=== PATIENT | male | born 1940 | race Caucasian/White ===

== ENCOUNTER 2025-11-01 14:26 | Inpatient (IN) | payer MEDICARE, SELFPAY ==
[2025-11-01] VITALS (11 sets, daily range): BP systolic 82–119; BP diastolic 48–59; PULSE 56–92; RESP 16–19; TEMP 36.1–37.4; O2SAT 89–97
--- NOTE | ~2025-11-01 | CT_ITS ---
CLINICAL HISTORY: chest trauma (elevated creatinine) CT chest without contrast Comparison: None provided Findings: Calcified coronary atherosclerotic disease. The visualized thyroid and mediastinum are unremarkable. These interstitial reticular opacities with peripheral honeycombing. This is reticular opacities with peripheral honeycombing. Right upper lobe mass 4.8 cm. Left upper lobe 2.2 cm pulmonary nodule. Mild calcified atherosclerotic disease of the abdominal aorta. No acute fractures. Moderate osteopenia. IMPRESSION: 1. 4.8 cm right upper lobe mass. 2.2 cm left upper lobe pulmonary nodule. Short-term follow-up in [address]-guided biopsy. 2. UIP. 3. Mild calcified atherosclerotic disease of the abdominal aorta. This document has been electronically signed by: Raudel Chadwick MD on 11/01/2025 18:29:32
--- NOTE | ~2025-11-01 | CT_ITS ---
CLINICAL HISTORY: falls at home CT cervical spine without contrast Comparison: None provided Findings: S1/2 a call grade I anterolisthesis of C7 over T1 C5-6: Severe DJD. Grade 1 retrolisthesis C5 over C6. Large anterior bridging syndesmophyte. C7-T1: Grade 1 anterolisthesis of C7 over T1. No significant degenerative change. No acute fractures or dislocations. The ventricles humidity the a grade I or does he C5 over C6 are a large anterior bridging syndesmophytes there prior to the exam, moderate ddp and mild to or project that's quite clear Soft tissues of the neck are normal. Biapical pulmonary scarring. C1-2: Moderate to severe osteoarthrosis. C6-7: Moderate DJD. Mild anterior bridging syndesmophyte. IMPRESSION: 1. Grade I anterolisthesis of C7 over T1. 2. 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 3. Moderate to severe osteoarthrosis at C1-C2. 4. Moderate degenerative joint disease at C6-C7 with mild anterior bridging syndesmophyte. 5. No acute fractures or dislocations. This document has been electronically signed by: Raudel Chadwick MD on 11/01/2025 18:08:22
--- NOTE | ~2025-11-01 | XR_ITS ---
CLINICAL HISTORY: fall 3 view left elbow Comparison: None provided Findings: Bones intact. No dislocations. No significant arthritic change or erosions. No joint effusion. No radiopaque foreign body. IMPRESSION: 1. No acute findings. This document has been electronically signed by: Raudel Chadwick MD on 11/01/2025 17:34:49
--- NOTE | ~2025-11-01 | CT_ITS ---
CLINICAL HISTORY: falls at home CT head without contrast Comparison: None provided Findings: No intra-axial mass, midline shift, hydrocephalus, or acute hemorrhage. Heterogeneous low attenuation in the periventricular white matter. Mild cerebral atrophy. The visualized paranasal sinuses and mastoid air cells are normal. The orbits are within normal limits. There is no acute fracture. IMPRESSION: 1. Chronic periventricular microvascular ischemic disease. 2. Mild cerebral atrophy. 3. No acute intracranial findings. This document has been electronically signed by: Raudel Chadwick MD on 11/01/2025 18:13:31
--- NOTE | ~2025-11-01 | XR_ITS ---
CLINICAL HISTORY: fall, injury 3 view left shoulder Comparison: None provided Findings: A spiral comminuted fracture inspire comminuted a fracture of the humerus surgical neck. Mild osteopenia. No significant arthritic change. No erosions. No radiopaque foreign body. IMPRESSION: 1. Spiral comminuted fracture of the left humeral surgical neck. 2. Mild osteopenia. This document has been electronically signed by: Raudel Chadwick MD on 11/01/2025 17:44:56
--- NOTE | ~2025-11-01 | CT_ITS ---
CLINICAL HISTORY: trauma (elevated creatinine) CT abdomen and pelvis without contrast Comparison: None provided Findings: No consolidation or effusion. Multiple bilateral renal low-attenuation foci largest left interpolar region 7.9 cm; renal cysts. The adrenals are within normal limits. The liver and spleen and pancreas are within normal limits. There is diffuse fecal material seen throughout the colon. Moderate to severe calcified atherosclerotic disease of the abdominal aorta. Distal sigmoid colon pericolonic inflammatory changes. The appendix is within normal limits. The prostate is hypertrophic. The bones are intact. IMPRESSION: 1. Distal sigmoid acute diverticulitis. 2. Moderate to severe calcified atherosclerotic disease of the abdominal aorta. 3. Constipation. 4. Prostatic hypertrophy. 5. No acute intraabdominal or pelvic findings. This is sigmoid diverticulitis. This document has been electronically signed by: Raudel Chadwick MD on 11/01/2025 18:23:31
--- NOTE | 2025-11-01 15:25 | ED_ITS ---
HPI - Fall General Chief Complaint: Fall Stated Complaint: Fall, swelling lt arm Time Seen by Provider: 11/01/25 16:03 History of Present Illness HPI Narrative: Patient is an 85-year-old male presents today with recent fall. Patient fell approximately 3 days prior. Unsure the reason why he fell. Might have been dizzy. Patient denies hitting his head not on blood thinner fell onto the left shoulder complaining of swelling there family member found him sitting in a chair with significant bruising noted around the left shoulder. Sent him to the ED for further evaluation patient denies any diaphoresis. No abdominal pain. Been sitting in a chair. Feels very weak. No nausea no vomiting. Decreased p.o. intake but was able to eat a cupcake this morning. Patient denies being on any medication at all. Related Data Allergies Allergy/AdvReac Type Severity Reaction Status Date / Time No Known Allergies Allergy Verified 11/01/25 15:30 Review of Systems 2 Review of Systems: Positive fall [facility] Social History Social History Smoked in Last 30 Days: Yes Use of substances other than those prescribed or required for medical reasons: No Advance Directives: No Advance Directives Information Provided: No Physical Exam 2 Exam: Exam: Appearance: Alert. Oriented X3. No acute distress. Eyes: Pupils equal, round and reactive to light. ENT: Pharynx normal. Neck: Normal inspection. Neck supple. No lymph nodes noted. No crepitus . There is no posterior C-spine tenderness elicited there is no gross step-off noted. CVS: Normal heart rate and rhythm. Pulses normal. Normal S1 and S2 Respiratory: No respiratory distress. Breath sounds normal. No Wheezing. No rales . There is no crepitus on palpation. There is significant bruising noted over the left shoulder area. There is swelling over the area. There is limited range of motion. There is good movement of the elbow and good movement of the wrist. Good movement of the hands. Sensation grossly intact. Pulse intact. Skin intact. Abdomen: Soft and nontender. No rigidity. No distention. good BS x4 Skin: Skin warm and dry. Normal skin color. Normal skin turgor. Extremities: No lower extremity edema. Neurovascular intact To the right upper bilateral lower extremity. Examination of the of the left upper extremity showed significant bruising over the left shoulder. There is good sensation over the axillary median radial and ulnar nerves. There is good movement of the elbow the wrist there is no anatomical snuffbox tenderness there is good movement of the fingers there is good opposition of the thumb capillary refill less than 2 seconds that is good pulses at radial patient skin grossly intact there is significant bruising looks like at different stages at the left shoulder. Limited range of motion secondary to pain. Neuro: Oriented X 3. No motor deficit. No sensory deficit. Moving all extermities. No slurred speech Vital Signs: Vital Signs: Last Vital Signs Temp 99.4 F 11/01/25 16:34 Pulse 66 11/01/25 18:00 Resp 18 11/01/25 18:00 BP 119/54 L 11/01/25 18:00 Pulse Ox 93 11/01/25 18:00 O2 Del Method Room Air 11/01/25 18:00 BMI result Body Mass Index 0.0 Course Course Course Narrative: Thalia Baughrhonda DELIVERY DRIVER ASSISTANT 11/01 9461 This is a rapid medical exam. Deferred addtional HPI, ROS, PE to primary provider. 85 yo male with no known medical history (hasnt been to a PCP in >5 yrs) here with complaints of left shoulder pain, multiple falls over the past few days. Feels generally weak. Hypotensive in triage. Will obtain labs, EKG, CXR, UA, Ct head/cervical spine. Lives home with his . Charge nurse notified and patient brought right back to room. Medications Administered Discontinued Medications Generic Name Dose Route Start Last Admin Trade Name Freq PRN Reason Stop Dose Admin Acetaminophen 650 mg 11/01/25 17:24 11/01/25 17:51 Acetaminophen 325 Mg Tablet PO 11/01/25 17:25 650 mg ONCE ONE Administration Sodium Chloride 1,000 mls @ 999 mls/hr 11/01/25 15:28 11/01/25 17:51 Ns IV 11/01/25 16:28 Infused .Q1H1M STA Infusion Sodium Chloride 500 mls @ 999 mls/hr 11/01/25 16:30 11/01/25 17:51 Ns IV 11/01/25 17:00 999 mls/hr .Q31M DAVID Administration Medical Decision Making Medical Decision Making [facility] Narrative: my interpretation patient's EKG showed a sinus rhythm heart rate is 80 OR QRS QTC normal no acute ST segment elevation. Status post fall question etiology happened 3 days ago. Will get labs. CT scan of the head and C-spine ordered to rule out the possibility of fracture malalignment. CT scan of the chest abdomen pelvis was ordered as patient has significant bruising noted to the left chest wall. There is good movement of the bilateral lower extremity. There is good pulses distally. On examination of the right hand there is good pulses distally but will get x-rays of the shoulder and elbow. Patient's blood pressure was loaded to be low. We will give some IV fluids. The abdominal CT will also look for traumatic etiology for the low blood pressure. Patient initially had a low blood pressure a L and a half of fluids was given. Patient monitored. Blood pressure improved. Patient's CT scan of the chest showed a significant mass. This was discussed with the radiologist. Also discussed with the hospitalist team. Patient's CTA of the abdomen pelvis was positive for having diverticulitis. There is no abscess there is no perforation antibiotic was started patient's lactate was 1.2 there is no evidence for severe sepsis. X-ray showed a significant humeral fracture Differential Diagnosis Differential Diagnoses: The differential diagnosis associated with the presentation includes humeral fracture, dislocation, pneumonia, urinary tract infection, intra- abdominal infection, trauma to the chest Admission/Observation Consideration of admission/observation: Escalation of care including admission/observation considered Consult Healthcare Provider Management of the patient was discussed with: Hospitalist Lab Data MDM Lab Attestation statement: I reviewed the patient's lab results. 11/01/25 16:15 11/01/25 16:15 Labs: Lab Results 11/01/25 11/01/25 Range/Units 16:14 16:15 RBC 3.25 L (4.60-5.80) X10*6/uL Hgb 9.2 L (14.0-18.0) g/dl Hct 27.9 L (42.0-52.0) % MCV 85.8 (80.0-98.0) fL MCH 28.3 (27.0-33.0) pg MCHC 33.0 (31.0-36.0) g/dl RDW 15.9 (11.0-16.0) % Plt Count 208 (160-400) X10*3/uL MPV 8.9 L (9.4-12.4) fL Immature Gran % (Auto) Cancelled Neut % (Auto) Cancelled Lymph % (Auto) Cancelled [place] % (Auto) Cancelled Eos % (Auto) Cancelled Baso % (Auto) Cancelled Lymph # (Auto) Cancelled [place] # (Auto) Cancelled Eos # (Auto) Cancelled Baso # (Auto) Cancelled Abs Immat Gran (auto) Cancelled Absolute Neuts (auto) Cancelled Absolute Nucleated RBC 0.000 (0.0-0.012) X10*3/uL Nucleated RBC % (auto) 0.0 (0.0-0.2) /100WBC Sodium 137 (135-145) mmol/L Potassium 4.4 (3.3-5.1) mmol/L Chloride 105 (96-108) mmol/L Carbon Dioxide 24 (22-29) mmol/L Anion Gap 12 (12-20) BUN 47 H (9-16) mg/dL Creatinine 2.07 H (0.5-1.4) mg/dL Estim Creat Clear Calc TNP Estimated GFR 31 Random Glucose 131 H (60-115) mg/dL Lactic Acid 1.2 (0.5-2.0) mmol/L Calcium 12.0 H (8.4-10.2) mg/dL Total Bilirubin 0.5 (0.0-1.0) mg/dL Direct Bilirubin 0.3 (0.0-0.5) mg/dL AST 37 (5-37) U/L ALT 7 (0-40) U/L Alkaline Phosphatase 65 (39-117) U/L Total Creatine Kinase 86 (38-174) U/L Troponin I High Sens 7.5 (<3.5-35.0) ng/L Total Protein 8.3 H (6.5-8.0) g/dL Albumin 3.3 L (3.5-5.0) g/dL Influenza Type A (PCR) NEGATIVE (Negative) Influenza Type B (PCR) NEGATIVE (Negative) RSV RNA Qual (PCR) NEGATIVE (Negative) SARS-CoV-2 RNA (RT-PCR) NEGATIVE (Negative) Independent Interpretation I performed an independent interpretation of an: Plain X-Ray ( humeral fracture) and CT Scan ( diverticulitis. Lung mass noted on the CT scan chest) Radiology Impression Discussion of test interpretation with radiology: I have reviewed the radiologist's reading. Chronic Conditions Lost to the healthcare system Social Determinants Patient?s care significantly limited by Social Determinants of Health including: Problems related to primary support group Critical Care Time Critical Care Time Critical Care Time: Yes Total Critical Care Time: 40 Attestation: I have personally provided 40 minutes of critical care time exclusive of time spent on separately billable procedures. Time includes review of lab data, radiology results, discussion with consultants, and monitoring for potential decompensation. Interventions were performed as documented above Discharge Plan Discharge Clinical Impression: Fracture of humeral head, Diverticulitis, Acute renal insufficiency Patient Disposition: Admitted As Inpatient Print Language: Portuguese
--- NOTE | 2025-11-01 15:28 | ECG_ITS ---
Test Reason : weakness Blood Pressure : */* mmHG Vent. Rate : 86 BPM Atrial Rate : 86 BPM P-R Int : 194 ms QRS Dur : 90 ms QT Int : 346 ms P-R-T Axes : 63 -50 40 degrees QTcB Int : 414 ms Normal sinus rhythm Left axis deviation Pulmonary disease pattern Abnormal ECG When compared with ECG of 21-Jan-2016 14:06, Premature ventricular complexes are no longer Present Referred By: Thalia Giordano Electronically Signed By: Andrea Howell
--- NOTE | 2025-11-01 15:49 | PC.NURSE ---
nephew at bedside. states patient has had increased and frequent falls at home. last was 3 days ago. likely tripped on something and fell onto concrete covered in rug. pt has deep multicolored bruising and swelling from shoulder to midforearm. unable to move arm. palpable pulses. heavy smoke. oriented to person only. NSR on monitor. [facility] also reports that patient was stuck in his own chair today and po intake is declining. no meds prescribed. pt has tenting and dry MM. unsteady during transfer to bed.
[2025-11-01 16:22] LABS: Hematocrit 27.9 % (42.0-52.0); Hemoglobin 9.2 g/dl (14.0-18.0); Mean Corpuscular HGB Conc 33.0 g/dl (31.0-36.0); Mean Corpuscular Hemoglobin 28.3 pg (27.0-33.0); Mean Corpuscular Volume 85.8 fL (80.0-98.0); NRBC Abs Auto 0.000 X10*3/uL (0.0-0.012); NRBC Pct Auto 0.0 /100WBC (0.0-0.2); Platelet Count 208 X10*3/uL (160-400); Red Blood Count 3.25 X10*6/uL (4.60-5.80); WBC ABN SCTR FOR CBC 1
[2025-11-01 16:40] LABS: Alanine Aminotransferase 7 U/L (0-40); Albumin Level 3.3 g/dL (3.5-5.0); Alkaline Phosphatase 65 U/L (39-117); Anion Gap 12 (12-20); Aspartate Amino Transferase 37 U/L (5-37); Blood Urea Nitrogen 47 mg/dL (9-16); Calcium 12.0 mg/dL (8.4-10.2); Carbon Dioxide 24 mmol/L (22-29); Chloride 105 mmol/L (96-108); Estimated Glomerular Filt Rate 31; Potassium 4.4 mmol/L (3.3-5.1); Sodium 137 mmol/L (135-145); Total Protein 8.3 g/dL (6.5-8.0)
[2025-11-01 16:54] LABS: Troponin-I High Sensitivity 7.5 ng/L (<3.5-35.0)
[2025-11-01 17:07] LABS: Resp Syncy Virus RNA Qual PCR NEGATIVE (Negative); SARS COV2 PCR INHOUSE NEGATIVE (Negative)
[2025-11-01] MEDS: metroNIDAZOLE/NS 500 MG/100 ML PIGGYBACK 100 MG IV (18:46)
[2025-11-01 18:56] LABS: Band Neutrophils Percent 1 % (3-5); Lymphocytes Percent Manual 72 % (20-40); Monocytes Percent Manual 5 % (2-11); Neutrophils Percent Manual 22 % (45-73)
[2025-11-01 18:57] LABS: RBC Morphology NORMAL
[2025-11-01 18:58] LABS: Lymphocytes Absolute Manual 8.7 X10*3/uL (1.2-4.9); Monocytes Absolute Manual 0.6 X10*3/uL (0.1-1.2); Neutrophils Absolute Manual 2.8 X10*3/uL (2.0-8.3); White Blood Count 12.1 X10*3/uL (4.8-10.8)
[2025-11-01 19:11] LABS: Appearance Urine Clear; Glucose Urine UA Negative (Negative); PH 5.0 (5.0-9.0); Specific Gravity - Urine 1.020 (1.005-1.025); UMIC TRIGGER UACC YES
--- NOTE | 2025-11-01 19:54 | P.HPHOSP_ITS ---
History of Present Illness Date of Service: 11/01/25 Chief Complaint: Fall , Left arm pain, weight loss , decreased appetite An 85-year-old male with 60 pack years smoking history who presents after a fall three days prior with left arm pain. He reports generalized weakness and inability to ambulate. The fall was mechanical in origin as he lost his balance but possibly preceded by dizziness while going downstairs. He denies head strike or loss of consciousness and is not on anticoagulation. He fell onto his left side and developed significant swelling and ecchymosis over the left shoulder. He had multiple falls over the last year with no reported major injuries. Since the fall, he has had marked weakness and decreased oral intake but denies nausea, vomiting, abdominal pain, fever, or diaphoresis. He has been losing weight for the last year as his appetite significantly decreased. He is active smoker with no previous lung problems, dyspnea or cough. He is not that active at baseline but his nephew reported lightheadedness with exertion. On arrival, he was hypotensive, which improved after 1.5 L of IV fluids. Workup revealed possible acute kidney injury with creatinine 2.07 (baseline ~1.16 from 2020). Imaging showed a left humeral fracture, CT scan of abdomen reported diverticulitis without abscess or perforation (antibiotics started in ED), and an incidental chest masses and fibrotic changes requiring follow-up. Lactate was normal (1.2). CT head and cervical spine were negative. EKG showed normal sinus rhythm without ischemic changes. He is admitted for management of traumatic injury, MIYA, lung mass, diverticulitis, and functional decline. Review of Systems 2 Review of Systems: No fever, chills but has generalized weakness No chest pain, palpitation No shortness of breath or coughing at rest No abdominal pain, nausea or vomiting No urinary symptoms No any rash or wounds PMFSH Medical History Smoking greater than 40 pack years Social History Smoked in Last 30 Days: Yes Use of substances other than those prescribed or required for medical reasons: No Advance Directives: No Advance Directives Information Provided: No Meds Allergies Allergy/AdvReac Type Severity Reaction Status Date / Time No Known Allergies Allergy Verified 11/01/25 15:30 Active Medications: Current Medications Sodium Chloride (Ns) 1,000 mls @ 999 mls/hr IV .Q1H1M [facility] Stop: 11/01/25 21:00 Last Admin: 11/01/25 19:49 Dose: 999 mls/hr Physical Exam 2 Vital Signs and Narrative: Vital Signs: Last Vital Signs Temp 98.3 F 11/01/25 18:45 Pulse 65 11/01/25 19:49 Resp 17 11/01/25 19:49 BP 99/50 L 11/01/25 19:49 Pulse Ox 91 L 11/01/25 19:49 O2 Del Method Room Air 11/01/25 19:49 BMI result Body Mass Index 0.0 Const: Other: Constitutional : Awake, interactive, frail looking, not in distress Neck : Normal inspection, Supple Cardiovascular : RRR, no JVP, no lower extremity edema Respiratory : fair bilateral air entry, basal fine inspiratory crackles, no wheezes or rhonchi Gastrointestinal: soft, lax, Normal bowel sounds, Non tender Skin : Warm, Dry Neurological : Alert & oriented to place and person but not time or date , No focal deficit Results Labs 11/01/25 16:15 11/01/25 16:15 Labs: Laboratory Results - last 24 hr 11/01/25 11/01/25 11/01/25 16:14 16:15 19:02 MCV 85.8 MCH 28.3 MCHC 33.0 RDW 15.9 Plt Count 208 MPV 8.9 L Immature Gran % (Auto) Cancelled Neut % (Auto) Cancelled Lymph % (Auto) Cancelled [place] % (Auto) Cancelled Eos % (Auto) Cancelled Baso % (Auto) Cancelled Lymph # (Auto) Cancelled [place] # (Auto) Cancelled Eos # (Auto) Cancelled Baso # (Auto) Cancelled Abs Immat Gran (auto) Cancelled Absolute Neuts (auto) Cancelled Absolute Nucleated RBC 0.000 Nucleated RBC % (auto) 0.0 Neutrophils % (Manual) 22 L Band Neutrophils % 1 L Lymphocytes % (Manual) 72 H Monocytes % (Manual) 5 Abs Neuts (Manual) 2.8 Lymphocytes # (Manual) 8.7 H Monocytes # (Manual) 0.6 Platelet Estimate NORMAL Plt Morphology Comment NORMAL RBC Morphology NORMAL Anion Gap 12 Estim Creat Clear Calc TNP Estimated GFR 31 Random Glucose 131 H Lactic Acid 1.2 Calcium 12.0 H Total Bilirubin 0.5 Direct Bilirubin 0.3 AST 37 ALT 7 Alkaline Phosphatase 65 Total Creatine Kinase 86 Troponin I High Sens 7.5 Total Protein 8.3 H Albumin 3.3 L Urine Color Yellow Urine Appearance Clear Urine pH 5.0 Ur Specific [place] 1.020 Urine Protein 30 (1+) H Urine Glucose (UA) Negative Urine Ketones Negative Urine Blood Negative Urine Nitrite Negative Ur Leukocyte Esterase Negative Urine RBC 0-2 Urine WBC 0-5 Ur Squamous Epith Cells 0-2 Urine Bacteria None Seen Hyaline Casts 3-5 Influenza Type A (PCR) NEGATIVE Influenza Type B (PCR) NEGATIVE RSV RNA Qual (PCR) NEGATIVE SARS-CoV-2 RNA (RT-PCR) NEGATIVE Assessment and Plan (1) Acute renal insufficiency: Status: Acute (2) Fracture of humeral head: Status: Acute (3) Lung mass: Status: Acute (4) Smoking greater than 40 pack years: Status: Acute (5) Hypercalcemia: Status: Acute Plan An 85-year-old male with 60 pack years smoking history who presents after a fall three days prior with left arm pain. He is admitted for management of traumatic injury, MIYA, lung mass, diverticulitis, and functional decline. Left humeral spiral fracture from Falls 2/2 Physical deconditioning XR as reported Arm in sling per Orthopedic rec. Orthopedic consult PT and OT Tylenol for pain control Hypotension Likely dehydration related as he looks dry and has not been eating or drinking much since the fall Give 1L NS and closely monitor fluid status ; hold on maintenance and use 500 cc boluses if needed encourage PO intake Monitor BP Lung mass, ILD picture CT scan reports: 4.8 cm right upper lobe mass. 2.2 cm left upper lobe pulmonary nodule. Also reports changes suggestive of ILD Highly concerning for primary cancer but other etiologies considered less likely: infx, lymphoma Blood cultures sent The patient wants to know his options before making any decision. It seems more reasonable to get him palliative care and home O2 evaluation Pulmonary consult for guidance re lung biopsy and prognosis of underlying ILD Do home O2 eval prior to discharge home PET scan as outpatient check LDH, ESR Abnormal abd CT scan Ct abd reports: patient denies any symptoms., exam benign Could be chronic changes? Hold on antibiotics and monitor response MIYA on CKD3 Unclear baseline (1.2) from 2019 check serum electropheresis , [place]/Lambda given abnormal protein\albumin ration monitor response to IVF boluses follow I\O, BMP Active smoker advised to quit Nicotine patches ordered Weight loss, decreased appetite Could be related to underlying malignancy given CT findings add supplement , PT and OT Get paper supervisor eval next week DVT PPx Heparin SC ACP: started goals of care discussions. explained CPR to the patient; he is hesitant about DNR and wants to talk to family. Follow on that please. for now he is Full code. GET HCP on file please (child welfare caseworker consult placed) The patient will need 2 overnight hospital stay for treatment of Hypercalcemia, MIYA,, Falls, fractures pending specialist evaluation Quality Stroke Does the patient have a stroke diagnosis?: No VTE Prior VTE?: No VTE Risk Level:: Medical - moderate - high VTE Device Contraindication: Treatment Not Indicated VTE Drug Contraindication: N/A - Med Ordered
--- NOTE | 2025-11-01 20:06 | MHC.EDTECH ---
applied a male purewick per RN request
--- NOTE | 2025-11-01 20:20 | PC.NURSE ---
Pt spO2 noted to drop to 89% on room air while resting, pt placed on O2 2L NC. spO2 improved to 95%. Pt breathing unlabored, he denies shortness of breath or pain. Male purewick placed on pt. Pt left arm in sling. Call martinez within reach. Plan of care ongoing.
[2025-11-01 22:36] LABS: Parathyroid Hormone Intact 8.9 pg/mL (8.7-77.1)
--- NOTE | 2025-11-01 23:40 | PM.EVENT ---
Event Note Date of Service: 11/01/25 Event Note: X-rays of the left shoulder reviewed; left proximal humerus fracture Orthopedic recommendations: Deep BOGGS Followup with orthopedics out patient after medical discharge Time Spent With Patient Time: Total time managing care of this patient today ____ minutes.
[2025-11-02] VITALS (9 sets, daily range): BP systolic 93–105; BP diastolic 44–63; PULSE 54–67; RESP 16–20; TEMP 36.3–36.8; O2SAT 93–97; BMI 20.8
[2025-11-02] MEDS: 0.9 % Sodium Chloride Flush 3 ML SYRINGE IVFLUSH (02:29)
[2025-11-02 04:44] LABS: Hematocrit 25.6 % (42.0-52.0); Hemoglobin 8.2 g/dl (14.0-18.0); Mean Corpuscular HGB Conc 32.0 g/dl (31.0-36.0); Mean Corpuscular Hemoglobin 27.9 pg (27.0-33.0); Mean Corpuscular Volume 87.1 fL (80.0-98.0); NRBC Abs Auto 0.000 X10*3/uL (0.0-0.012); NRBC Pct Auto 0.0 /100WBC (0.0-0.2); Platelet Count 175 X10*3/uL (160-400); Red Blood Count 2.94 X10*6/uL (4.60-5.80)
[2025-11-02 04:45] LABS: WBC ABN SCTR FOR CBC 1
[2025-11-02 05:05] LABS: Anion Gap 10 (12-20); Blood Urea Nitrogen 41 mg/dL (9-16); Calcium 10.6 mg/dL (8.4-10.2); Carbon Dioxide 21 mmol/L (22-29); Chloride 112 mmol/L (96-108); Estimated Glomerular Filt Rate 37; Potassium 4.4 mmol/L (3.3-5.1); Sodium 139 mmol/L (135-145)
[2025-11-02 05:10] LABS: Atypical Lymphs Percent Manual 3 % (0-6); Band Neutrophils Percent 2 % (3-5); Eosinophils Percent Manual 1 % (0-4); Lymphocytes Percent Manual 74 % (20-40); Monocytes Percent Manual 1 % (2-11); Neutrophils Percent Manual 19 % (45-73)
[2025-11-02 05:11] LABS: RBC Morphology NOTED
[2025-11-02 05:12] LABS: Macrocytosis 1+ (5-14) /OIF; Microcytosis 2+ (15-30) /OIF
[2025-11-02 05:13] LABS: Atypical Lymph Absolute Manual 0.3 x10*3/uL; Eosinophils Absolute Manual 0.1 X10*3/uL (0.0-0.4); Lymphocytes Absolute Manual 6.7 X10*3/uL (1.2-4.9); Monocytes Absolute Manual 0.1 X10*3/uL (0.1-1.2); Neutrophils Absolute Manual 1.9 X10*3/uL (2.0-8.3); White Blood Count 9.1 X10*3/uL (4.8-10.8)
[2025-11-02] MEDS: Nicotine 14 MG PATCH.TD24 TRANSDERMA (07:32)
--- NOTE | 2025-11-02 08:31 | HO.PM.IMPN ---
Subjective Subjective Date of Service: 11/02/25 Interval History: Left shoulder pain Physical Exam Exam: Exam: General: AO X 3, in some pain, frail and ill-appearing Resp: Diminished bilateral, no accessory muscles used CVS: S1,S2,RRR GI: soft, non tender, non distended Neuro: motor grossly intact, alert Psych: appropriate affect, poor memory retention, appears to only have vague idea regarding diagnoses Vital Signs: Vital Signs: Last Vital Signs Temp 97.5 F 11/02/25 08:06 Pulse 62 11/02/25 08:06 Resp 20 11/02/25 08:06 BP 98/44 L 11/02/25 08:06 Pulse Ox 96 11/02/25 08:06 O2 Del Method Nasal Cannula 11/02/25 08:06 O2 Flow Rate 2 11/02/25 08:06 BMI result Body Mass Index 0.0 Objective Data Active Medications Acetaminophen (Acetaminophen 325 Mg Tablet) 650 mg PO Q6H PRN PRN Reason: Pain, Mild 1-3,fever,headache Benzonatate (Benzonatate 100 Mg Capsule) 100 mg PO TID PRN PRN Reason: Cough Calcium Carbonate (Calcium Carbonate 750 Mg Tab.Chew) 750 mg PO Q4H PRN PRN Reason: Heartburn Heparin Sodium (Porcine) (Heparin Sodium,Porcine 5,000 Unit/Ml Vial) 5,000 unit SUBCUT Q12H [facility] Last Admin: 11/02/25 07:32 Dose: 5,000 unit Documented By: CRISTEL Magnesium Hydroxide (Milk Of Magnesia 30 Ml Oral.Susp) 30 ml PO DAILY PRN PRN Reason: Constipation Melatonin (Melatonin 3 Mg Tablet) 6 mg PO BEDTIME PRN PRN Reason: Insomnia Nicotine (Nicotine 14 Mg Patch.Td24) 14 mg TRANSDERMA DAILY [facility] Last Admin: 11/02/25 07:32 Dose: 14 mg Documented By: CRISTEL Ondansetron HCl (Ondansetron Hcl 4 Mg/2 Ml Vial) 4 mg IVPUSH Q8H PRN PRN Reason: Nausea and Vomiting Sodium Chloride (0.9 % Sodium Chloride Flush 3 Ml Syringe) 3 ml IVFLUSH QSHIFT [facility] Last Admin: 11/02/25 07:32 Dose: Not Given Documented By: CRISTEL Non-Admin Reason: Med Not Available Labs 11/02/25 04:27 11/02/25 04:27 Labs: Laboratory Results - last 24 hr 11/01/25 11/01/25 11/01/25 16:14 16:15 19:02 MCV 85.8 MCH 28.3 MCHC 33.0 RDW 15.9 Plt Count 208 MPV 8.9 L Immature Gran % (Auto) Cancelled Neut % (Auto) Cancelled Lymph % (Auto) Cancelled [place] % (Auto) Cancelled Eos % (Auto) Cancelled Baso % (Auto) Cancelled Lymph # (Auto) Cancelled [place] # (Auto) Cancelled Eos # (Auto) Cancelled Baso # (Auto) Cancelled Abs Immat Gran (auto) Cancelled Absolute Neuts (auto) Cancelled Absolute Nucleated RBC 0.000 Nucleated RBC % (auto) 0.0 Neutrophils % (Manual) 22 L Band Neutrophils % 1 L Lymphocytes % (Manual) 72 H Atypical Lymphs % (Man) Monocytes % (Manual) 5 Eosinophils % (Manual) Abs Neuts (Manual) 2.8 Lymphocytes # (Manual) 8.7 H Atyp Lymphs # (Manual) Monocytes # (Manual) 0.6 Eosinophils # (Manual) Platelet Estimate NORMAL Plt Morphology Comment NORMAL RBC Morphology NORMAL Microcytosis Macrocytosis ESR Anion Gap 12 Estim Creat Clear Calc TNP Estimated GFR 31 Random Glucose 131 H Lactic Acid 1.2 Calcium 12.0 H Total Bilirubin 0.5 Direct Bilirubin 0.3 AST 37 ALT 7 Alkaline Phosphatase 65 Lactate Dehydrogenase Total Creatine Kinase 86 Troponin I High Sens 7.5 Total Protein 8.3 H Albumin 3.3 L 25-OH Vitamin D Total TSH PTH Intact Urine Color Yellow Urine Appearance Clear Urine pH 5.0 Ur Specific [place] 1.020 Urine Protein 30 (1+) H Urine Glucose (UA) Negative Urine Ketones Negative Urine Blood Negative Urine Nitrite Negative Ur Leukocyte Esterase Negative Urine RBC 0-2 Urine WBC 0-5 Ur Squamous Epith Cells 0-2 Urine Bacteria None Seen Hyaline Casts 3-5 Influenza Type A (PCR) NEGATIVE Influenza Type B (PCR) NEGATIVE RSV RNA Qual (PCR) NEGATIVE SARS-CoV-2 RNA (RT-PCR) NEGATIVE 11/01/25 11/02/25 21:21 04:27 MCV 87.1 MCH 27.9 MCHC 32.0 RDW 16.1 H Plt Count 175 MPV 8.9 L Immature Gran % (Auto) Cancelled Neut % (Auto) Cancelled Lymph % (Auto) Cancelled [place] % (Auto) Cancelled Eos % (Auto) Cancelled Baso % (Auto) Cancelled Lymph # (Auto) Cancelled [place] # (Auto) Cancelled Eos # (Auto) Cancelled Baso # (Auto) Cancelled Abs Immat Gran (auto) Cancelled Absolute Neuts (auto) Cancelled Absolute Nucleated RBC 0.000 Nucleated RBC % (auto) 0.0 Neutrophils % (Manual) 19 L Band Neutrophils % 2 L Lymphocytes % (Manual) 74 H Atypical Lymphs % (Man) 3 Monocytes % (Manual) 1 L Eosinophils % (Manual) 1 Abs Neuts (Manual) 1.9 L Lymphocytes # (Manual) 6.7 H Atyp Lymphs # (Manual) 0.3 Monocytes # (Manual) 0.1 Eosinophils # (Manual) 0.1 Platelet Estimate NORMAL Plt Morphology Comment NORMAL RBC Morphology NOTED Microcytosis 2+ (15-30) Macrocytosis 1+ (5-14) ESR 31 H Anion Gap 10 L Estim Creat Clear Calc TNP Estimated GFR 37 Random Glucose 106 Lactic Acid Calcium 10.6 H D Total Bilirubin Direct Bilirubin AST ALT Alkaline Phosphatase Lactate Dehydrogenase 136 Total Creatine Kinase Troponin I High Sens Total Protein Albumin 25-OH Vitamin D Total 16.9 L TSH 3.48 PTH Intact 8.9 Urine Color Urine Appearance Urine pH Ur Specific [place] Urine Protein Urine Glucose (UA) Urine Ketones Urine Blood Urine Nitrite Ur Leukocyte Esterase Urine RBC Urine WBC Ur Squamous Epith Cells Urine Bacteria Hyaline Casts Influenza Type A (PCR) Influenza Type B (PCR) RSV RNA Qual (PCR) SARS-CoV-2 RNA (RT-PCR) Assessment and Plan (1) Hypercalcemia: Status: Acute Plan 85M PMH chronic smoking presented with falls and left shoulder pain, found to have lung mass, parrish, hypoxia fall complicated by left humeral spiral fracture due to hypotension from hypovolemia Nonweightbearing left upper extremity, sling, PT OT, pain control Follow up outpatient with ortho IV fluids Hypoxia Likely chronic hypoxic respiratory failure due to COPD/interstitial lung disease Home O2 eval prior to discharge Lung mass Suspicious for malignancy Follow up Pulmonary ? Sigmoid diverticulitis Appears to be asymptomatic Monitor off antibiotics for now Acute kidney injury on CKD 3 IV fluids, follow up SPEP Hypercalcemia Likely due to dehydration, fracture DVT prophylaxis with heparin subQ Full code reason for continued hospitalization: IV fluids for acute kidney injury, pulmonary workup Quality Stroke Does the patient have a stroke diagnosis?: No VTE Prior VTE?: No VTE Risk Level:: Medical - moderate - high VTE Device Contraindication: Treatment Not Indicated VTE Drug Contraindication: N/A - Med Ordered
--- NOTE | 2025-11-02 08:48 | PC.NURSE ---
Pt has been moved to a hospital bed. Also better sized sling applied.
--- NOTE | 2025-11-02 08:58 | PHA.MEDREC ---
Addendum entered by Faviola Rodriguez RPh 11/02/25 09:25: MED REC REVIEWED BY ORAL. Original Note: Pharmacy Consult ? Medication Reconciliation Pharmacy has completed the medication reconciliation. Confirmed with patient and through claims history that patient has no known home medications. Patient was adamant that they do not take any medications at home.
[2025-11-02] MEDS: Lactated Ringers 1,000 ML 80 ML IVCONT ×2 (09:10→21:40)
--- NOTE | 2025-11-02 10:43 | PM.CNPUL ---
History of Present Illness History of Present Illness Consult date: 11/02/25 Chief complaint: Bilateral pulmonary masses, pulmonary fibrosis Narrative: 85-year-old gentleman with recent 70+ pack-year smoking history admitted on 11/01/2025 with mechanical fall and mild hypercalcemia with CT chest showing bilateral upper lobes pulmonary masses [id number]-left and pulmonary fibrosis. Patient denies any pulmonary related concerns or complaints. Review of Systems Constitutional: Constitutional: Denies daytime sleepiness, Denies excessive sweating, Denies fatigue, Denies fever(s), Denies lethargy, Denies malaise, Denies night sweats, Denies snoring and Denies weight loss Eyes: Eyes: Denies blurry vision and Denies itchy eyes ENT: Denies nasal congestion, Denies post nasal drip, Denies sinus pain, Denies sinus pressure and Denies other ( Thrush) Cardiovascular: Cardiovascular: Denies chest pain, Denies pedal edema, Denies dyspnea, Denies orthopnea and Denies paroxysmal nocturnal dyspnea Respiratory: Respiratory: Denies cough, Denies hemoptysis, Denies excessive phlegm production, Denies dyspnea, Denies snoring and Denies wheezing Gastrointestinal: Gastrointestinal: Denies abdominal pain and Denies heartburn Musculoskeletal: Musculoskeletal: Denies myalgias, Denies arthralgias and Denies joint swelling Integumentary/Breasts: Skin/Breast: Denies rash Neurologic: Denies memory loss and Denies seizure-like activity Psychiatric: Psychiatric: Denies abnormal sleep pattern, Denies anxiety and Denies memory loss Endocrine: Endocrine: Denies excessive sweating, Denies fatigue and Denies heat intolerance Hematologic/Lymphatic: Hematologic/Lymphatic: Denies easy bruising Allergic/Immunologic: Allergic/Immunologic: Denies itchy eyes, Denies seasonal rhinorrhea and Denies wheezing PMFSH Past Medical History Medical History Smoking greater than 40 pack years Social History Social History Patient Tobacco Use Status: Current everyday Tobacco user Smoked in Last 30 Days: Yes Use of substances other than those prescribed or required for medical reasons: No Advance Directives: No Advance Directives Information Provided: No Meds Allergies Allergy/AdvReac Type Severity Reaction Status Date / Time No Known Allergies Allergy Verified 11/01/25 15:30 Active Medications: Current Medications Acetaminophen (Acetaminophen 325 Mg Tablet) 650 mg PO Q6H PRN PRN Reason: Pain, Mild 1-3,fever,headache Benzonatate (Benzonatate 100 Mg Capsule) 100 mg PO TID PRN PRN Reason: Cough Calcium Carbonate (Calcium Carbonate 750 Mg Tab.Chew) 750 mg PO Q4H PRN PRN Reason: Heartburn Heparin Sodium (Porcine) (Heparin Sodium,Porcine 5,000 Unit/Ml Vial) 5,000 unit SUBCUT Q12H [facility] Last Admin: 11/02/25 07:32 Dose: 5,000 unit Lactated Ringer's (Lr) 1,000 mls @ 80 mls/hr IVCONT .[id number] [facility] Last Admin: 11/02/25 09:10 Dose: 80 mls/hr Magnesium Hydroxide (Milk Of Magnesia 30 Ml Oral.Susp) 30 ml PO DAILY PRN PRN Reason: Constipation Melatonin (Melatonin 3 Mg Tablet) 6 mg PO BEDTIME PRN PRN Reason: Insomnia Nicotine (Nicotine 14 Mg Patch.Td24) 14 mg TRANSDERMA DAILY [facility] Last Admin: 11/02/25 07:32 Dose: 14 mg Ondansetron HCl (Ondansetron Hcl 4 Mg/2 Ml Vial) 4 mg IVPUSH Q8H PRN PRN Reason: Nausea and Vomiting Sodium Chloride (0.9 % Sodium Chloride Flush 3 Ml Syringe) 3 ml IVFLUSH QSHIFT [facility] Last Admin: 11/02/25 07:32 Dose: Not Given Home Medications ?Medication ?Instructions ?Recorded ?Confirmed ?Last Taken ?Type No Known Home Meds 11/02/25 11/02/25 Unknown History Physical Exam Vital Signs: Vital Signs: Last Vital Signs Temp 97.5 F 11/02/25 08:06 Pulse 62 11/02/25 08:06 Resp 20 11/02/25 08:06 BP 98/44 L 11/02/25 08:06 Pulse Ox 96 11/02/25 08:06 O2 Del Method Nasal Cannula 11/02/25 08:06 O2 Flow Rate 2 11/02/25 08:06 BMI result Body Mass Index 0.0 Const: General: no acute distress and alert Nutritional Appearance: not obese Orientation/consciousness: Other orientation findings ( oriented) HEENT: Head: Yes atraumatic Eyes: General: appearance normal, both eyes and all related structures Sclerae: sclerae normal EOM: EOMs intact bilaterally Neck: Neck: Yes supple Lymphatic: no lymphadenopathy noted Resp: Effort & Inspection: normal respiratory effort and no use of accessory muscles Auscultation: clear to auscultation bilaterally Cardio: Rate: regular rate Rhythm: regular rhythm Heart sounds: no gallops, no murmurs and no rubs Skin: General skin exam: other ( warm) Extrem: General: No clubbing, No cyanosis and No edema Results Laboratory Findings 11/02/25 04:27 11/02/25 04:27 Abnormal lab findings: Abnormal Labs 11/01/25 11/01/25 11/01/25 16:15 19:02 21:21 WBC 12.1 H RBC 3.25 L Hgb 9.2 L Hct 27.9 L RDW MPV 8.9 L Neutrophils % (Manual) 22 L Band Neutrophils % 1 L Lymphocytes % (Manual) 72 H Monocytes % (Manual) Abs Neuts (Manual) Lymphocytes # (Manual) 8.7 H ESR Chloride Carbon Dioxide Anion Gap BUN 47 H Creatinine 2.07 H Random Glucose 131 H Calcium 12.0 H Total Protein 8.3 H Albumin 3.3 L 25-OH Vitamin D Total 16.9 L Urine Protein 30 (1+) H 11/02/25 04:27 WBC RBC 2.94 L Hgb 8.2 L Hct 25.6 L RDW 16.1 H MPV 8.9 L Neutrophils % (Manual) 19 L Band Neutrophils % 2 L Lymphocytes % (Manual) 74 H Monocytes % (Manual) 1 L Abs Neuts (Manual) 1.9 L Lymphocytes # (Manual) 6.7 H ESR 31 H Chloride 112 H Carbon Dioxide 21 L Anion Gap 10 L BUN 41 H Creatinine 1.77 H Random Glucose Calcium 10.6 H D Total Protein Albumin 25-OH Vitamin D Total Urine Protein Assessment and Plan (1) Mass of left lung: Status: Acute (2) Mass of right lung: Status: Acute (3) Pulmonary fibrosis: Status: Acute (4) Smoking greater than 40 pack years: Status: Acute Plan Impression: 85-year-old gentleman admitted after mechanical fall, with incidentally noted mild hypercalcemia and CT chest with pulmonary fibrosis and bilateral lung masses. Patient denies any pulmonary related concerns or complaints. 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 Recommendation: Outpatient pulmonary follow-up for PET/biopsy considerations. Procedures Date of Service Date of Service: 11/02/25
--- NOTE | 2025-11-02 11:20 | PC.NURSE ---
Assumed care of patient at this time. Pt sleeping comfortably. Breathing equal and unlabored. Vitals stable on monitor, SPO2 99-100% on 2L via NC, decreased to 1L. No distress noted. IV maintenance fluids continue to infuse. Male purewick in place with urine noted in suction canister. Sling to left arm in place.
--- NOTE | 2025-11-02 13:10 | PC.NURSE ---
Update to Nurse to Nurse report from previous RN: Pt off of oxygen at this time. Maintaining in mid 90s. PIV to right forearm with LR at 80ml/hr infusing. Denies need for pain medications when asked multiple times. Pain only with movement, comfortable at rest.
[2025-11-03 03:05] VITALS: BP 100/55; PULSE 56; RESP 18; TEMP 36.3; O2SAT 92
[2025-11-03 07:03] LABS: Hematocrit 26.9 % (42.0-52.0); Hemoglobin 8.6 g/dl (14.0-18.0); Mean Corpuscular HGB Conc 32.0 g/dl (31.0-36.0); Mean Corpuscular Hemoglobin 28.0 pg (27.0-33.0); Mean Corpuscular Volume 87.6 fL (80.0-98.0); NRBC Abs Auto 0.000 X10*3/uL (0.0-0.012); NRBC Pct Auto 0.0 /100WBC (0.0-0.2); Platelet Count 200 X10*3/uL (160-400); Red Blood Count 3.07 X10*6/uL (4.60-5.80); White Blood Count 10.2 X10*3/uL (4.8-10.8)
[2025-11-03 07:38] LABS: Alanine Aminotransferase < 6 U/L (0-40); Albumin Level 2.6 g/dL (3.5-5.0); Alkaline Phosphatase 54 U/L (39-117); Anion Gap 10 (12-20); Aspartate Amino Transferase 27 U/L (5-37); Blood Urea Nitrogen 33 mg/dL (9-16); Calcium 10.3 mg/dL (8.4-10.2); Carbon Dioxide 20 mmol/L (22-29); Chloride 109 mmol/L (96-108); Creatinine Clr Calc Pharmacy 35.4; Estimated Glomerular Filt Rate 49; Magnesium 1.9 mg/dL (1.6-2.6); Potassium 4.4 mmol/L (3.3-5.1); Sodium 135 mmol/L (135-145); Total Protein 7.2 g/dL (6.5-8.0)
[2025-11-03 07:55] VITALS: BP 118/57; PULSE 62; RESP 18; TEMP 36.6; O2SAT 97
--- NOTE | 2025-11-03 08:45 | HO.PM.IMPN ---
Subjective Subjective Date of Service: 11/03/25 Interval History: Left shoulder pain Physical Exam Exam: Exam: General: AO X 2, in some pain, frail and ill-appearing Resp: Diminished bilateral, no accessory muscles used CVS: S1,S2,RRR GI: soft, non tender, non distended Neuro: motor grossly intact, alert Psych: appropriate affect, poor memory retention, appears to only have vague idea regarding diagnoses, does not have adequate insight Vital Signs: Vital Signs: Last Vital Signs Temp 97.8 F 11/03/25 07:55 Pulse 62 11/03/25 07:55 Resp 18 11/03/25 07:55 BP 118/57 L 11/03/25 07:55 Pulse Ox 97 11/03/25 07:55 O2 Del Method Room Air 11/03/25 07:55 O2 Flow Rate 2 11/02/25 08:06 BMI result Body Mass Index 20.8 Const: General: no acute distress and alert Nutritional Appearance: not obese Orientation/consciousness: Other orientation findings ( oriented) HEENT: Head: Yes atraumatic Eyes: General: appearance normal, both eyes and all related structures Sclerae: sclerae normal EOM: EOMs intact bilaterally Neck: Neck: Yes supple Lymphatic: no lymphadenopathy noted Resp: Effort & Inspection: normal respiratory effort and no use of accessory muscles Auscultation: clear to auscultation bilaterally Cardio: Rate: regular rate Rhythm: regular rhythm Heart sounds: no gallops, no murmurs and no rubs Skin: General skin exam: other ( warm) Extrem: General: No clubbing, No cyanosis and No edema Objective Data Active Medications Acetaminophen (Acetaminophen 325 Mg Tablet) 650 mg PO Q6H PRN PRN Reason: Pain, Mild 1-3,fever,headache Last Admin: 11/02/25 19:55 Dose: 650 mg Documented By: LEO Benzonatate (Benzonatate 100 Mg Capsule) 100 mg PO TID PRN PRN Reason: Cough Calcium Carbonate (Calcium Carbonate 750 Mg Tab.Chew) 750 mg PO Q4H PRN PRN Reason: Heartburn Heparin Sodium (Porcine) (Heparin Sodium,Porcine 5,000 Unit/Ml Vial) 5,000 unit SUBCUT Q12H [facility] Last Admin: 11/02/25 19:58 Dose: 5,000 unit Documented By: LEO Lactated Ringer's (Lr) 1,000 mls @ 80 mls/hr IVCONT .[id number] [facility] Last Admin: 11/02/25 21:40 Dose: 80 mls/hr Documented By: LEO Influenza Virus Vaccine (Flu Vacc Ax2743-65(6mo Up)/Pf 0.5 Ml Syringe) 0.5 ml IM .ONCE ONE Stop: 11/03/25 09:01 Magnesium Hydroxide (Milk Of Magnesia 30 Ml Oral.Susp) 30 ml PO DAILY PRN PRN Reason: Constipation Melatonin (Melatonin 3 Mg Tablet) 6 mg PO BEDTIME PRN PRN Reason: Insomnia Nicotine (Nicotine 14 Mg Patch.Td24) 14 mg TRANSDERMA DAILY [facility] Last Admin: 11/02/25 07:32 Dose: 14 mg Documented By: CRISTEL Ondansetron HCl (Ondansetron Hcl 4 Mg/2 Ml Vial) 4 mg IVPUSH Q8H PRN PRN Reason: Nausea and Vomiting Sodium Chloride (0.9 % Sodium Chloride Flush 3 Ml Syringe) 3 ml IVFLUSH QSHIFT [facility] Last Admin: 11/02/25 19:58 Dose: Not Given Documented By: LEO Non-Admin Reason: IV Running Labs 11/03/25 06:51 11/03/25 06:13 Labs: Laboratory Results - last 24 hr 11/03/25 11/03/25 06:13 06:51 MCV 87.6 MCH 28.0 MCHC 32.0 RDW 15.9 Plt Count 200 MPV 9.1 L Absolute Nucleated RBC 0.000 Nucleated RBC % (auto) 0.0 Anion Gap 10 L Estim Creat Clear Calc 35.4 Estimated GFR 49 Random Glucose 94 Calcium 10.3 H Magnesium 1.9 Total Bilirubin 0.4 Direct Bilirubin 0.2 AST 27 ALT < 6 Alkaline Phosphatase 54 Total Protein 7.2 Albumin 2.6 L Microbiology Microbiology Results: Microbiology 11/01/25 16:14 Blood Culture - Preliminary Blood - Venous No growth after 24 hours. 11/01/25 16:14 Blood Culture - Preliminary Blood - Venous No growth after 24 hours. Assessment and Plan (1) Hypercalcemia: Status: Acute Plan 85M PMH chronic smoking presented with falls and left shoulder pain, found to have lung mass, parrish, hypoxia fall complicated by left humeral spiral fracture due to hypotension from hypovolemia Nonweightbearing left upper extremity, sling, PT OT, pain control Follow up outpatient with ortho presumed alzheimers dementia very poor memory retention, does not have insight into medical condition, would invoke health care proxy for medical decisions at this time, (may fluctuate) transient acute Hypoxia now on room air COPD/ILD nebs as needed Lung mass Suspicious for malignancy outpatient PET/biopsy ? Sigmoid diverticulitis Appears to be asymptomatic Monitor off antibiotics for now Acute kidney injury on CKD 3 IV fluids, follow up SPEP, improving Hypercalcemia Likely due to dehydration, fracture, ?malignancy DVT prophylaxis with heparin subQ Full code reason for continued hospitalization: IV fluids for acute kidney injury, pt eval Quality Stroke Does the patient have a stroke diagnosis?: No VTE Prior VTE?: No VTE Risk Level:: Medical - moderate - high VTE Device Contraindication: Treatment Not Indicated VTE Drug Contraindication: N/A - Med Ordered
[2025-11-03] MEDS: Lactated Ringers 1,000 ML 80 ML IVCONT (10:21)
[2025-11-03 11:53] VITALS: BP 103/48; PULSE 69; RESP 18; TEMP 36.3; O2SAT 97
--- NOTE | 2025-11-03 14:27 | HO.WOUND ---
Wound Consult: Initial 85 yr old female admitted to [facility] on 11/01/25 - See progress notes and H&P for detailed history. Wound consult placed for buttocks. Patient agreeable to assessment and photo documentation. Patient turned to side with minimal assistance. Coccyx/buttocks Etiology: MASD/blanchable redness Wound Bed: intact blanchable redness with moisture Drainage / Odor: none Yolanda wound: ? No Induration, Fluctuance or Warmth noted Pain: none Goals of Treatment: ? foam dressing for offloading or triad for moisture barrier left arm with edema- weeping - no obvious open wound - recommend dry gauze/abd pad for drainage containment Recommendations: 1. Turn and Reposition every 2 hours and as needed for patient comfort. Use pillows or wedges to support off loading positions. 2. Off Load all bony prominences with use of pillows and heel boots if needed. Apply Preventative foams where needed. 3. Use waffle cushion when up to chair, limit sitting times to 1-2 hours 3. Monitor for incontinence and moisture control, use barrier creams when needed for prevention and treatment. 4. Provide adequate and supplemental nutrition. 5. Order or Continue low air loss mattress. 6. When applicable maintain blood glucose levels per Providers order. Coccyx/buttocks: Off Load Pressure with Q2 hr turns and use of pillows - Routine cleansing. Apply skin prep allow to dry. Cover with foam dressing to aid in off loading and protection from friction. Change every 3 days and PRN. If changing greater than daily due to soiling, switch to triad paste only Left arm/elbow: apply dry gauze/ABD pad to weeping areas, change daily Re-consult wound care Nurse for wound deterioration or wound changes.
[2025-11-03 15:48] VITALS: BP 126/78; PULSE 67; RESP 18; TEMP 36.6; O2SAT 93
--- NOTE | 2025-11-03 16:20 | MHC.CM.PN ---
PT REPORTS HE LIVES WITH HIS AND IS INDEPENDENT WITH CARE NO SERVICES OR DME [employer] REPORTS HE HAS NOT SEEN ARIS GRIGSBY IN 4-5 YEARS HE IS ACTIVE WITH A PCP AT THE [facility] ON [facility] IN [place] IMM DELIVERED DCP: HOME VIA [facility] TRANSPORT
--- NOTE | 2025-11-03 16:30 | PC.NURSE ---
16:30 - took over care of patient. crackles auscultated in bilateral lower lungs with left greater than right. Reached out to provider Jeodell via [employer], provider ordered to discontinue IV fluids. Patient voiding in urinal and encouraged to drink liquids.
[2025-11-03] MEDS: 0.9 % Sodium Chloride Flush 3 ML SYRINGE IVFLUSH (19:26)
[2025-11-03 19:29] VITALS: BP 123/58; PULSE 71; RESP 18; TEMP 36.3; O2SAT 94
[2025-11-03 23:31] VITALS: BP 152/67; PULSE 77; RESP 18; TEMP 36.5; O2SAT 92
[2025-11-04 03:30] VITALS: BP 152/70; PULSE 90; RESP 18; TEMP 37.1; O2SAT 91
[2025-11-04 07:26] VITALS: BP 135/61; PULSE 80; RESP 18; TEMP 36.7; O2SAT 95
[2025-11-04] MEDS: 0.9 % Sodium Chloride Flush 3 ML SYRINGE IVFLUSH ×2 (07:45→17:04)
--- NOTE | 2025-11-04 09:20 | HO.PM.IMPN ---
Subjective Subjective Date of Service: 11/04/25 Interval History: Left shoulder pain Physical Exam Exam: Exam: General: AO X 2, in some pain, frail and ill-appearing Resp: Diminished bilateral, no accessory muscles used CVS: S1,S2,RRR GI: soft, non tender, non distended Neuro: motor grossly intact, alert Psych: appropriate affect, poor memory retention, appears to only have vague idea regarding diagnoses, does not have adequate insight Vital Signs: Vital Signs: Last Vital Signs Temp 98.0 F 11/04/25 07:26 Pulse 80 11/04/25 07:26 Resp 18 11/04/25 07:26 BP 135/61 11/04/25 07:26 Pulse Ox 95 11/04/25 07:26 O2 Del Method Nasal Cannula 11/04/25 07:26 O2 Flow Rate 2.0 11/04/25 07:26 BMI result Body Mass Index 20.8 Const: General: no acute distress and alert Nutritional Appearance: not obese Orientation/consciousness: Other orientation findings ( oriented) HEENT: Head: Yes atraumatic Eyes: General: appearance normal, both eyes and all related structures Sclerae: sclerae normal EOM: EOMs intact bilaterally Neck: Neck: Yes supple Lymphatic: no lymphadenopathy noted Resp: Effort & Inspection: normal respiratory effort and no use of accessory muscles Auscultation: clear to auscultation bilaterally Cardio: Rate: regular rate Rhythm: regular rhythm Heart sounds: no gallops, no murmurs and no rubs Skin: General skin exam: other ( warm) Extrem: General: No clubbing, No cyanosis and No edema Objective Data Active Medications Acetaminophen (Acetaminophen 325 Mg Tablet) 650 mg PO Q6H PRN PRN Reason: Pain, Mild 1-3,fever,headache Last Admin: 11/04/25 05:21 Dose: 650 mg Documented By: ABRT Benzonatate (Benzonatate 100 Mg Capsule) 100 mg PO TID PRN PRN Reason: Cough Calcium Carbonate (Calcium Carbonate 750 Mg Tab.Chew) 750 mg PO Q4H PRN PRN Reason: Heartburn Heparin Sodium (Porcine) (Heparin Sodium,Porcine 5,000 Unit/Ml Vial) 5,000 unit SUBCUT Q12H DAVID Last Admin: 11/04/25 07:43 Dose: 5,000 unit Documented By: SUSIE Magnesium Hydroxide (Milk Of Magnesia 30 Ml Oral.Susp) 30 ml PO DAILY PRN PRN Reason: Constipation Melatonin (Melatonin 3 Mg Tablet) 6 mg PO BEDTIME PRN PRN Reason: Insomnia Nicotine (Nicotine 14 Mg Patch.Td24) 14 mg TRANSDERMA DAILY [facility] Last Admin: 11/04/25 07:45 Dose: Not Given Documented By: SUSIE Non-Admin Reason: Patient Refused Ondansetron HCl (Ondansetron Hcl 4 Mg/2 Ml Vial) 4 mg IVPUSH Q8H PRN PRN Reason: Nausea and Vomiting Sodium Chloride (0.9 % Sodium Chloride Flush 3 Ml Syringe) 3 ml IVFLUSH QSHIFT [facility] Last Admin: 11/04/25 07:45 Dose: 3 ml Documented By: SUSIE Labs 11/03/25 06:51 11/03/25 06:13 Microbiology Microbiology Results: Microbiology 11/01/25 16:14 Blood Culture - Preliminary Blood - Venous No growth after 48 hours. 11/01/25 16:14 Blood Culture - Preliminary Blood - Venous No growth after 48 hours. 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 Sigmoid diverticulitis Appears to be asymptomatic Monitor off antibiotics Acute kidney injury on CKD 3 IV fluids, follow up SPEP, improving Hypercalcemia Likely due to dehydration, fracture, ?malignancy DVT prophylaxis with heparin subQ Full code reason for continued hospitalization: dispo planning Quality Stroke Does the patient have a stroke diagnosis?: No VTE Prior VTE?: No VTE Risk Level:: Medical - moderate - high VTE Device Contraindication: Treatment Not Indicated VTE Drug Contraindication: N/A - Med Ordered
--- NOTE | 2025-11-04 09:27 | PM.DS ---
DS: Providers Provider Date of admission: 11/01/25 19:47 Date of discharge: 11/04/25 Primary care physician: Sylvain Elise MD Consults: 11/01/25 19:48 Consult to Orthopedics Routine Consulting Provider: [facility] Reason for consultation: Left humeral fracture Consult to Pulmonology Routine Consulting Provider: [facility] Reason for consultation: Lung mass , UIP picture for lung biopsy discussion\decision 11/02/25 20:08 Consult to Wound Care Routine Consulting Provider: [facility] Management Reason for consultation: blanchable redness to buttocks DS: Diagnosis Discharge Diagnosis (1) Hypercalcemia: Status: Acute DS: Summary Hospital Course Hospital Course: from initial hpi: 85-year-old male with 60 pack years smoking history who presents after a fall three days prior with left arm pain. He reports generalized weakness and inability to ambulate. The fall was mechanical in origin as he lost his balance but possibly preceded by dizziness while going downstairs. He denies head strike or loss of consciousness and is not on anticoagulation. He fell onto his left side and developed significant swelling and ecchymosis over the left shoulder. He had multiple falls over the last year with no reported major injuries. Since the fall, he has had marked weakness and decreased oral intake but denies nausea, vomiting, abdominal pain, fever, or diaphoresis. He has been losing weight for the last year as his appetite significantly decreased. He is active smoker with no previous lung problems, dyspnea or cough. He is not that active at baseline but his nephew reported lightheadedness with exertion. On arrival, he was hypotensive, which improved after 1.5 L of IV fluids. Workup revealed possible acute kidney injury with creatinine 2.07 (baseline ~1.16 from 2020). Imaging showed a left humeral fracture, CT scan of abdomen reported diverticulitis without abscess or perforation (antibiotics started in ED), and an incidental chest masses and fibrotic changes requiring follow-up. Lactate was normal (1.2). CT head and cervical spine were negative. EKG showed normal sinus rhythm without ischemic changes. He is admitted for management of traumatic injury, MIYA, lung mass, diverticulitis, and functional decline. hospital course: Patient was admitted for fall complicated by left humeral spiral fracture due to hypotension from hypovolemia. Lorne's seen by ortho who recommended nonweightbearing left upper extremity, placing arm in sling for comfort and physical therapy and occupational therapy evaluation. Patient was seen by physical therapy and occupational therapy recommended short-term rehab to which patient will be discharged. He is expected require less than 30 days. For hypotension was given IV fluids and improved. For presumed Alzheimer's dementia patient has fluctuating memory retention and insight. For intermittent hypoxia he was on and off oxygen during hospitalization. 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 For lung mass suspicious for malignancy he was seen by Pulmonary recommended outpatient follow up for PET scan and biopsy. Initial CAT scan had a question of sigmoid diverticulitis however patient did not have any symptoms and did well off of antibiotics. For acute kidney injury on CKD 3, improved with IV fluids, spep is pending and should be followed up. Patient noted to have hypercalcemia likely combination of dehydration, fracture and possibly malignancy. This did improve somewhat with IV fluids. Time Attestation Discharge Coordination Time (in mins): 33 Quality: Safe Use of Opioids Does Pt have an Active Cancer Diagnosis on the Problem List?: Yes Opioid Measure Date for [facility] Report: 10/05/25 Opioid Measure Time for [facility] Report: 17:03 Quality: Stroke Does the patient have a stroke diagnosis?: No Physical Exam Exam: Exam: General: AO X 2, in some pain, frail and ill-appearing Resp: Diminished bilateral, no accessory muscles used CVS: S1,S2,RRR GI: soft, non tender, non distended Neuro: motor grossly intact, alert Psych: appropriate affect, poor memory retention, appears to only have vague idea regarding diagnoses, does not have adequate insight Vital Signs: Vital Signs: Last Vital Signs Temp 98.0 F 11/04/25 07:26 Pulse 80 11/04/25 07:26 Resp 18 11/04/25 07:26 BP 135/61 11/04/25 07:26 Pulse Ox 95 11/04/25 07:26 O2 Del Method Nasal Cannula 11/04/25 07:26 O2 Flow Rate 2.0 11/04/25 07:26 BMI result Body Mass Index 20.8 Const: General: no acute distress and alert Nutritional Appearance: not obese Orientation/consciousness: Other orientation findings ( oriented) HEENT: Head: Yes atraumatic Eyes: General: appearance normal, both eyes and all related structures Sclerae: sclerae normal EOM: EOMs intact bilaterally Neck: Neck: Yes supple Lymphatic: no lymphadenopathy noted Resp: Effort & Inspection: normal respiratory effort and no use of accessory muscles Auscultation: clear to auscultation bilaterally Cardio: Rate: regular rate Rhythm: regular rhythm Heart sounds: no gallops, no murmurs and no rubs Skin: General skin exam: other ( warm) Extrem: General: No clubbing, No cyanosis and No edema DS: Data Data Completed and Pending Labs on day of discharge: Preliminary micro results at discharge 11/01/25 16:14 Blood Culture - Preliminary Blood - Venous No growth after 48 hours. 11/01/25 16:14 Blood Culture - Preliminary Blood - Venous No growth after 48 hours. Discharge Plan Discharge Anticipated Discharge Date/Time: 11/04/25 09:25 Patient Disposition: er [facility] Discharge Diagnosis: lung mass, left shoulder fracture, miya Referrals: Ronnie Roca PA [Physician Handbag Stitcher, Hand Surgery] - 1 Week Sylvain Elise MD [Primary Care Provider, Internal Medicine] - 1 Week Robinson Reddy MD [Physician, Pulmonology] - 1 Week Discharge Medications: No Action No Known Home Meds Discharge Orders: Discharge Order (Routine); Ordered 11/04/25 Ordered By: Lino Good Diet: Advance to usual diet Activity on Discharge: [facility] Stand Alone Forms: Patient Portal Discharge page Print Language: Kyrgyz Care Plan Goals: Recovery Health Concerns: Suspected malignancy, left shoulder fracture, acute kidney injury Plan of Treatment: Nonweightbearing left upper extremity, arm in sling for comfort, follow up with ortho as outpatient, PT and OT at short-term rehab Follow up Pulmonary for PET scan and biopsy arrangement for suspected lung cancer and interstitial lung disease Assessment: See above
[2025-11-04 13:37] VITALS: O2SAT 95
--- NOTE | 2025-11-04 13:48 | MHC.CM.PN ---
Patient medically cleared for dc. PT rec STR. Patient and agree w/ plan and have accepted a bed at [facility]. Auth pending. Patient completed HCP naming 1) nephew Tera Saavedra and 2) Marya.
[2025-11-04 15:32] VITALS: BP 120/56; PULSE 80; RESP 18; TEMP 36.1; O2SAT 94
[2025-11-04 17:20] VITALS: BP 118/53; PULSE 83; RESP 20; TEMP 36.8; O2SAT 99
[2025-11-07 16:48] LABS: Kappa, Serum 509 mg/dL (176-443); Kappa/Lambda Ratio, Serum 1.44 (1.29-2.55); Lambda, Serum 354 mg/dL (91-240)
[2025-11-10 16:18] LABS: PES - Abn Protein Band 1 1.2 g/dL (NONE DETECTED); Prot Elec - Albumin 2.5 g/dL (3.8-4.8); Prot Elec - Alpha1 0.4 g/dL (0.2-0.3); Prot Elec - Alpha2 0.7 g/dL (0.5-0.9); Prot Elec - Beta 1 0.3 g/dL (0.4-0.6); Prot Elec - Beta 2 0.3 g/dL (0.2-0.5); Prot Elec - Gamma 2.4 g/dL (0.8-1.7); Prot Elec - Total Protein 6.6 g/dL (6.1-8.1)
== END 2025-11-04 17:23 | disposition skilled nursing facility (03) | DRG 563 ==
LOC: HO.ED 18:41 → HO.EDOVER 20:09 → HO.S3 11-02 13:11
PROVIDERS: Nurse Practitioner Family; Admitting Provider Student in an Organized Health Care Education/Training Program; Emergency Provider Emergency Medicine Emergency Medical Services; PCP Family Medicine; Visit Provider Internal Medicine
DX: S42.342A Displaced spiral fracture of shaft of humerus, left arm, initial encounter for closed fracture (principal); N17.9 Acute kidney failure, unspecified; K57.32 Diverticulitis of large intestine without perforation or abscess without bleeding; J96.11 Chronic respiratory failure with hypoxia; W19.XXXA Unspecified fall, initial encounter; F17.210 Nicotine dependence, cigarettes, uncomplicated; I95.9 Hypotension, unspecified; Z71.6 Tobacco abuse counseling; Z20.822 Contact with and (suspected) exposure to COVID-19; J44.9 Chronic obstructive pulmonary disease, unspecified; R91.8 Other nonspecific abnormal finding of lung field; N18.30 Chronic kidney disease, stage 3 unspecified; E83.52 Hypercalcemia; E86.0 Dehydration; E86.1 Hypovolemia; J84.10 Pulmonary fibrosis, unspecified; G30.9 Alzheimer's disease, unspecified; F02.80 Dementia in other diseases classified elsewhere, unspecified severity, without behavioral disturbance, psychotic disturbance, mood disturbance, and anxiety
CPT/HCPCS: 36415; 70450; 71250; 72125; 73030; 73080; 74176; 80048; 80076; 81001; 82306; 82550; 83605; 83615; 83735; 83883; 83970; 84165; 84443; 84484; 85007; 85027; 85652; 87040; 87637; 93005; 97162; 97167; 97530; 99285; J0696; J1644; J1836; J7120

== ENCOUNTER → 2025-11-01 15:27 | Outpatient (BNV) | payer MEDICARE, SELFPAY | PROVIDERS: Emergency Provider Emergency Medicine Emergency Medical Services; PCP Family Medicine; Visit Provider Radiology Diagnostic Radiology | DX: K57.32 Diverticulitis of large intestine without perforation or abscess without bleeding (principal); I70.0 Atherosclerosis of aorta; K59.00 Constipation, unspecified; N40.0 Benign prostatic hyperplasia without lower urinary tract symptoms; R91.1 Solitary pulmonary nodule; M50.322 Other cervical disc degeneration at C5-C6 level; M50.323 Other cervical disc degeneration at C6-C7 level; M47.812 Spondylosis without myelopathy or radiculopathy, cervical region; I67.82 Cerebral ischemia; G31.9 Degenerative disease of nervous system, unspecified; S42.342A Displaced spiral fracture of shaft of humerus, left arm, initial encounter for closed fracture; S42.212A Unspecified displaced fracture of surgical neck of left humerus, initial encounter for closed fracture; Z04.3 Encounter for examination and observation following other accident | CPT/HCPCS: 70450; 71250; 72125; 73030; 73080; 74176 ==

== ENCOUNTER → 2025-11-01 15:28 | Outpatient (BNV) | payer MEDICARE, SELFPAY | PROVIDERS: Admitting Provider Student in an Organized Health Care Education/Training Program; Emergency Provider Emergency Medicine Emergency Medical Services; PCP Family Medicine; Visit Provider Internal Medicine Cardiovascular Disease | DX: R94.31 Abnormal electrocardiogram [ECG] [EKG] (principal); R53.1 Weakness | CPT/HCPCS: 93010 ==

== ENCOUNTER → 2025-11-01 19:47 | Outpatient (BNV) | payer MEDICARE, SELFPAY | PROVIDERS: Admitting Provider Student in an Organized Health Care Education/Training Program; Emergency Provider Emergency Medicine Emergency Medical Services; PCP Family Medicine; Visit Provider Internal Medicine Pulmonary Disease | DX: J84.10 Pulmonary fibrosis, unspecified (principal); R91.8 Other nonspecific abnormal finding of lung field; F17.210 Nicotine dependence, cigarettes, uncomplicated | CPT/HCPCS: 99253 ==

== ENCOUNTER → 2025-11-01 19:47 | Outpatient (BNV) | payer MEDICARE, SELFPAY | PROVIDERS: Admitting Provider Student in an Organized Health Care Education/Training Program; Emergency Provider Emergency Medicine Emergency Medical Services; PCP Family Medicine; Visit Provider Student in an Organized Health Care Education/Training Program | DX: E83.52 Hypercalcemia (principal) | CPT/HCPCS: 99233 ==

== ENCOUNTER 2025-11-04 22:25 | Emergency (ER) | payer MEDICARE, SELFPAY ==
--- NOTE | ~2025-11-04 | XR_ITS ---
CLINICAL HISTORY: fall again, pain 2 view left elbow Comparison: X-rays of the left elbow from 11/01/2025 Findings: Calcification at lateral margin of the imaged humerus likely related to epicondylitis. Small avulsion considered less likely; without significant change from comparison. Otherwise, no acute displaced fracture. No dislocation. Mild osteoarthritis noted. Small effusion is nonspecific. No retained metallic foreign body. IMPRESSION: 1. Calcification of the lateral margin of the imaged humerus likely due to lateral epicondylitis. 2. Mild osteoarthritis without dislocation. This document has been electronically signed by: Huber Hooper MD on 11/05/2025 00:06:01
--- NOTE | ~2025-11-04 | XR_ITS ---
CLINICAL HISTORY: fall again. known spiral humeral fx 2 view left shoulder Comparison: X-rays of the left shoulder from 11/01/2025 Findings: Acute comminuted proximal humerus fracture with spiral morphology and 1/4 shaft lateral displacement of the major fragments including majority of the diaphysis. Proximal fractures include of the imaged neck. Comminution noted, including of the greater tuberosity. Overall mildly improved alignment relative to radiographs from 3 days prior no definite osseous callus formation as of yet. Large effusion of the imaged left glenohumeral joint without dislocation. Mild glenoid irregularities likely old/chronic. 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 Likely combination of the atelectasis and chronic lung disease in the [id number]. Superficial opacities noted. IMPRESSION: 1. Acute comminuted proximal left humerus fracture; with mild improved alignment compared to 11/01/2025. 2. Left glenohumeral effusion without dislocation. This document has been electronically signed by: Huber Hooper MD on 11/05/2025 00:07:16
--- NOTE | ~2025-11-04 | CT_ITS ---
CLINICAL HISTORY: unwitnessed fall CT cervical spine without contrast Comparison: CT of the cervical spine from 11/01/2025 Findings: No acute fracture of the cervical spine. Redemonstration of the reversal of the cervical lordosis without significant change in vertebral heights or vertebral alignments. Mild anterolisthesis redemonstrated at the cervicothoracic junction. Ligament calcifications are multifocal-redemonstrated. No significant change in multifocal sclerosis, including anterior aspects of the C5 and C6 with prominent anterior osteophytes of the C5-C6, and mild retrolisthesis. Sclerosis of the C5 and C6 vertebral bodies remains non aggressive appearing not further characterize by CT. Facet arthropathy is redemonstrated, and multifocal; with right C3 to C5 facet fusion. Disc osteophyte complex with mild spinal canal stenosis of the C5-C6 and C6-C7. Multifocal foraminal narrowing including moderate to severe at C4-C5 to C7-T1, right worse than left. Small accessory ossicle and/or old fragment redemonstrated at anterior margin of the left T1 upper facet process. No paraspinal hematoma. Pulmonary opacities redemonstrated in the superimposed on chronic lung disease with emphysematous changes and scarring in the [id number]. IMPRESSION: No acute fracture of the cervical spine. This document has been electronically signed by: Huber Hooper MD on 11/05/2025 00:06:39
--- NOTE | ~2025-11-04 | CT_ITS ---
CLINICAL HISTORY: unwitnessed fall CT head without contrast Comparison: Head CT from 11/01/2025 Findings: No acute intracranial hemorrhage. No midline shift or hydrocephalus. Mild volume loss is generalized. Mild to moderate white matter lesions are redemonstrated, nonspecific, and can be seen with small-vessel ischemic disease. Dural calcifications and vascular calcifications are redemonstrated. Mucosal thickening of the imaged paranasal sinuses. Trace right mastoid effusion. No acute skull fracture. Degenerative changes include imaged temporomandibular joints, right worse than left. Imaged mastoid air cells are well aerated. IMPRESSION: No acute intracranial abnormality by CT. This document has been electronically signed by: Huber Hooper MD on 11/05/2025 00:12:01
[2025-11-04 22:34] VITALS: BP 106/54; BP 116/58; PULSE 71; RESP 20; TEMP 36.3; O2SAT 88; O2SAT 95; BMI 21.7
--- NOTE | 2025-11-04 22:45 | ED.FALL ---
HPI - Fall General Chief Complaint: Fall Stated Complaint: Fall, LOC? -thinners humorus fx back pain +collar Time Seen by Provider: 11/04/25 22:27 Source: patient and EMS Mode of arrival: EMS Limitations: other (Dementia) History of Present Illness ED Provider: Dr. Melanie Andrea HPI Narrative: Patient comes to the emergency room complaining of a fall. Patient was discharged from the hospital a few hours ago. Patient was admitted for a spiral humeral fracture, possible diverticulitis and chronic kidney disease. According to EMS, the staff reported that it was an unwitnessed fall. Does not seem the patient is on blood thinners. Patient states that he has pain in his left shoulder, but he has had pain since his previous fall a few days ago. According to EMS, patient's sling was off, unclear if he re-injured his left shoulder. Patient denies headache or neck pain. Related Data Home Medications ?Medication ?Instructions ?Recorded ?Confirmed No Known Home Meds 11/02/25 11/02/25 Allergies Allergy/AdvReac Type Severity Reaction Status Date / Time No Known Allergies Allergy Verified 11/04/25 22:38 Review of Systems Review of Systems: Yes Other [facility] Past Medical History Medical History Lung mass Fracture of humeral head Smoking greater than 40 pack years Social History Social History Household Members: Spouse Housing: House Do you presently have visiting nurse or other home services: No Patient Tobacco Use Status: Current everyday Tobacco user Smoked in Last 30 Days: Yes Use of substances other than those prescribed or required for medical reasons: No Advance Directives: No Advance Directives Information Provided: Yes service: Yes Physical Exam Exam: Exam: Appearance: Alert. Oriented X1. No acute distress. Eyes: Pupils equal, round and reactive to light. ENT: Pharynx normal. Neck: Normal inspection. Neck supple. No lymph nodes noted. No crepitus CVS: Normal heart rate and rhythm. Pulses normal. Normal S1 and S2 Respiratory: No respiratory distress. Breath sounds normal. No Wheezing. No rales Abdomen: Soft and nontender. No rigidity. No distention. Skin: Skin warm and dry. Normal skin color. Normal skin turgor. Extremities: No lower extremity edema. Patient's left arm is swollen, ecchymosis from shoulder to wrist, known previous fall. Neuro: Oriented X1. No motor deficit. No sensory deficit. Moving all extremities. No slurred speech. CN 2 through 12 grossly intact Psych: calm, cooperative, normal affect Vital Signs: Vital Signs: Last Vital Signs Temp 97.4 F 11/04/25 22:34 Pulse 71 11/04/25 22:34 Resp 20 11/04/25 22:34 BP 106/54 L 11/04/25 22:34 Pulse Ox 95 11/04/25 22:34 O2 Del Method Nasal Cannula 11/04/25 22:34 Oxygen Flow Rate 1 11/04/25 22:34 BMI result Body Mass Index 21.7 Course Course Course Narrative: Patient was discharged from the hospital a few hours ago from the inpatient floor. Patient has sustained an unwitnessed fall. We will obtain CT scans and x-rays again and a urinalysis. Blood work was obtained yesterday Medications Administered Discontinued Medications Generic Name Dose Route Start Last Admin Trade Name Freq PRN Reason Stop Dose Admin Acetaminophen 975 mg 11/04/25 22:57 11/04/25 23:32 Acetaminophen 325 Mg Tablet PO 11/04/25 22:58 975 mg ONCE ONE Administration Medical Decision Making Medical Decision Making MDM Narrative: The head and cervical spine CT did not show any acute abnormality, no acute intracranial hemorrhage Shoulder x-ray shows the known fracture with improved alignment, no dislocation. The elbow x-ray does not show any new acute abnormalities. Patient was recently discharged from the hospital and had a urinalysis, negative for UTI Independent Interpretation I performed an independent interpretation of an: Plain X-Ray and CT Scan Radiology Impression Discussion of test interpretation with radiology: I have reviewed the radiologist's reading. Radiologist Impression: No acute intracranial hemorrhage. No midline shift or hydrocephalus. Mild volume loss is generalized. Mild to moderate white matter lesions are redemonstrated, nonspecific, and can be seen with small-vessel ischemic disease. Dural calcifications and vascular calcifications are redemonstrated. Mucosal thickening of the imaged paranasal sinuses. Trace right mastoid effusion. No acute skull fracture. Degenerative changes include imaged temporomandibular joints, right worse than left. Imaged mastoid air cells are well aerated. No acute fracture of the cervical spine. Redemonstration of the reversal of the cervical lordosis without significant change in vertebral heights or vertebral alignments. Mild anterolisthesis redemonstrated at the cervicothoracic junction. Ligament calcifications are multifocal-redemonstrated. No significant change in multifocal sclerosis, including anterior aspects of the C5 and C6 with prominent anterior osteophytes of the C5-C6, and mild retrolisthesis. Sclerosis of the C5 and C6 vertebral bodies remains non aggressive appearing not further characterize by CT. Facet arthropathy is redemonstrated, and multifocal; with right C3 to C5 facet fusion. Disc osteophyte complex with mild spinal canal stenosis of the C5-C6 and C6-C7. Multifocal foraminal narrowing including moderate to severe at C4-C5 to C7-T1, right worse than left. Small accessory ossicle and/or old fragment redemonstrated at anterior margin of the left T1 upper facet process. No paraspinal hematoma. Pulmonary opacities redemonstrated in the superimposed on chronic lung disease with emphysematous changes and scarring in the [id number] Acute comminuted proximal humerus fracture with spiral morphology and 1/4 shaft lateral displacement of the major fragments including majority of the diaphysis. Proximal fractures include of the imaged neck. Comminution noted, including of the greater tuberosity. Overall mildly improved alignment relative to radiographs from 3 days prior no definite osseous callus formation as of yet. Large effusion of the imaged left glenohumeral joint without dislocation. Mild glenoid irregularities likely old/chronic. 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 Likely combination of the atelectasis and chronic lung disease in the [id number]. Superficial opacities noted Calcification at lateral margin of the imaged humerus likely related to epicondylitis. Small avulsion considered less likely; without significant change from comparison. Otherwise, no acute displaced fracture. No dislocation. Mild osteoarthritis noted. Small effusion is nonspecific. No retained metallic foreign body. Discharge Plan Discharge Clinical Impression: Fall, Contusion Patient Disposition: Home, Self-Care Instructions: Fall Prevention (ED) Additional Instructions: Your head CT and cervical spine CT did not show any acute abnormality. The shoulder x-ray shows no new injuries in addition to the fracture that you already know you have. Please follow-up with your primary care physician tomorrow. If you have any worsening or new symptoms, please return to the emergency room or call 911 Prescriptions: No Action No Known Home Meds Print Language: Turkmen
--- NOTE | 2025-11-05 01:31 | PC.NURSE ---
Report given to RN at [facility].
[2025-11-05 01:35] VITALS: BP 102/52; PULSE 63; RESP 18; TEMP 36.1; O2SAT 98
[2025-11-05 02:21] VITALS: BP 101/49; PULSE 61; RESP 18; TEMP 36.4; O2SAT 99
== END 2025-11-05 02:29 | disposition skilled nursing facility (03) ==
PROVIDERS: Emergency Provider Emergency Medicine; PCP Family Medicine
DX: M25.512 Pain in left shoulder (principal); S42.342D Displaced spiral fracture of shaft of humerus, left arm, subsequent encounter for fracture with routine healing; W19.XXXD Unspecified fall, subsequent encounter; N18.9 Chronic kidney disease, unspecified; Z72.0 Tobacco use; Z79.899 Other long term (current) drug therapy
CPT/HCPCS: 70450; 72125; 73030; 73070; 99284

== ENCOUNTER → 2025-11-04 22:38 | Outpatient (BNV) | payer MEDICARE, SELFPAY | PROVIDERS: Emergency Provider Emergency Medicine; Visit Provider Radiology Neuroradiology | DX: Z04.3 Encounter for examination and observation following other accident (principal); S42.352A Displaced comminuted fracture of shaft of humerus, left arm, initial encounter for closed fracture; M25.412 Effusion, left shoulder; M19.022 Primary osteoarthritis, left elbow; M61.411 Other calcification of muscle, right shoulder | CPT/HCPCS: 70450; 72125; 73030; 73070 ==